=== PATIENT | male | born 1985 | race Caucasian/White ===

== ENCOUNTER 2022-10-29 07:48 | Emergency (ER) | payer OTHER ==
[2022-10-29] MEDS ORDERED: HYDROcodone/Acetaminophen 5/325 mg Tablet ONE (08:32)
[2022-10-29] MEDS ORDERED: Lidocaine 4% Topical Sol 50 ML BOT TOP SCH (08:45)
== END 2022-10-29 08:42 | disposition home or self-care (01) ==
LOC: CSHERS 07:48
DX: K02.9 Dental caries, unspecified (principal); J45.909 Unspecified asthma, uncomplicated
CPT/HCPCS: 99282

== ENCOUNTER 2022-12-29 00:02 | Emergency (ER) | payer OTHER ==
[2022-12-29] MEDS ORDERED: Ibuprofen 200 MG TAB ONE ×2 (01:56→01:57)
[2022-12-29] MEDS ORDERED: HYDROcodone/Acetaminophen 10/325 mg Tablet ONE (02:19)
[2022-12-29] MEDS ORDERED: Penicillin V Potassium 250 MG TAB PO SCH (03:15)
[2022-12-29] MEDS ORDERED: Clindamycin 150 MG CAP ONE (03:19)
== END 2022-12-29 03:25 | disposition home or self-care (01) ==
LOC: CSHERS 00:02
DX: K04.7 Periapical abscess without sinus (principal)
CPT/HCPCS: 99283

== ENCOUNTER 2023-01-16 18:45 | Emergency (ER) | payer OTHER ==
[2023-01-16] MEDS ORDERED: Dexamethasone 10 MG/ML VIAL ONE (20:32)
[2023-01-16] MEDS ORDERED: Ibuprofen 200 MG TAB ONE (20:33)
[2023-01-16] MEDS ORDERED: Ipratropium/Albuterol 3 ML NEB ONE (20:37)
[2023-01-16] MEDS ORDERED: Pseudoephedrine HCl 30 MG TAB PO SCH (20:45)
[2023-01-16] MEDS ORDERED: guaiFENesin ER 600 MG TAB PO SCH (20:45)
== END 2023-01-16 22:26 | disposition home or self-care (01) ==
LOC: CSHERS 18:45
DX: J18.1 Lobar pneumonia, unspecified organism (principal); B34.9 Viral infection, unspecified; Z20.822 Contact with and (suspected) exposure to COVID-19
CPT/HCPCS: 71045; 87635; 87804; 94640; 94760; 96372; J1100; J7620